=== PATIENT | male | born 2000 | race Two or more races ===

== ENCOUNTER 2025-02-12 21:09 | Emergency (ER) | payer SELFPAY ==
[2025-02-12 21:10] VITALS: BMI 29.9
[2025-02-12 21:38] VITALS: BP 140/94; PULSE 105; RESP 18; TEMP 37.2; O2SAT 99
--- NOTE | 2025-02-12 22:08 | PD.EDURI ---
Upper Respiratory Inf. RME/HPI General Chief Complaint: Flu Like Symptoms Stated Complaint: Sinus Pressure Time Seen by Provider: 02/12/25 21:58 Arrival date/time: 02/12/25 21:09 24M with no significant PMH presents to ED with 2 days of nasal congestion, pressure, and pain. Patient denies cough. Limitations: no limitations Related Data Previous Rx's ?Medication ?Instructions ?Recorded amoxicillin 875 mg-potassium 1 tab PO BID 7 days #14 tabs 02/12/25 clavulanate 125 mg tablet Allergies Allergy/AdvReac Type Severity Reaction Status Date / Time No Known Allergies Allergy Verified 02/12/25 21:12 Review of Systems Review of Systems Systems Reviewed: All systems reviewed, normal except as documented Constitutional Constitutional: Reports system reviewed and no additional complaints, except as documented, Denies fever(s) and Denies headache(s) ENT Ears, Nose, Mouth, and Throat: Reports as per HPI, Denies disequilibrium, Denies headache(s), Reports sinus pain and Reports sinus pressure Cardiovascular Cardiovascular: Reports system reviewed and no additional complaints, except as documented, Denies chest pain and Denies dyspnea Respiratory Respiratory: Reports system reviewed and no additional complaints, except as documented, Denies cough and Denies dyspnea Gastrointestinal Gastrointestinal: Reports system reviewed and no additional complaints, except as documented, Denies abdominal pain, Denies nausea and Denies vomiting Neurologic Neurologic: Reports system reviewed and no additional complaints, except as documented, Denies confusion, Denies disequilibrium and Denies headache(s) Psychiatric Psychiatric: Denies confusion Past Medical History Social History SMOKING STATUS: Never smoker ED Exam General Limitations: Present no limitations General appearance: Present alert and in no apparent distress Head Head exam: Present atraumatic Eye Eye exam: Present normal appearance, PERRL and EOMI ENT ENT exam: Present normal oropharynx and mucous membranes moist Expanded ENT Exam Nose exam: Present sinus tenderness Neck Neck exam: Present normal inspection, full ROM and trachea midline Chest Chest inspection: Present normal inspection and symmetric chest wall rise Respiratory Respiratory exam: Present normal lung sounds bilaterally Cardiovascular Cardiovascular exam: Present regular rate, normal rhythm and normal heart sounds Abdominal Exam Abdominal exam: Present soft and normal bowel sounds Extremities Exam Extremities exam: Present normal inspection and full ROM Back Exam Back exam: Present normal inspection and full ROM Neurological Exam Neurological exam: Present alert, oriented X3 and CN II-XII intact Psychiatric Psychiatric exam: Present normal affect and normal mood Skin Skin exam: Present warm, dry, intact and normal color Course Quality Measures none Orders Category Date Time Status Bedside COVID-19 Antigen Test NOW Care 02/12/25 21:59 Active Bedside Influenza A&B Antigen Test NOW Care 02/12/25 21:59 Completed Amoxicillin/Pot Clav 875 [Augmentin 875] Med 02/12/25 22:32 Once 1 tab PO X1 ONE Naproxen [Naprosyn] Med 02/12/25 22:32 Once 500 mg PO X1 ONE Vital Signs Vital signs: Vital Signs Temperature 99 F 02/12/25 21:38 Pulse Rate 105 H 02/12/25 21:38 Respiratory Rate 18 02/12/25 21:38 Blood Pressure 140/94 H 02/12/25 21:38 Pulse Oximetry (%) 99 02/12/25 21:38 Oxygen Delivery Method Room Air 02/12/25 21:38 O2 at 99% on RA and WNLs Upper Respiratory Infection MDM Narrative MDM Narrative:: 24M with no significant PMH presents to ED with 2 days of nasal congestion, pressure, and pain. Patient denies cough. Physical exam reveals sinus congestion and tenderness. Normal WOB. Patient is afebrile, calm, and alert. Swabs neg. Will treat sinusitis. Patient data External records reviewed:: [facility] previous records Clinical information provided by:: patient Social determinants that could affect healthcare access:: none Patient has the following chronic illnesses:: none How is presenting disease/condition affected by chronic disease/condition?: no chronic disease Evaluation data The following diagnostics were reviewed and interpreted by me:: lab results Lab and/or radiology exams considered but not ordered:: ordered Interpretation Summary: above Medications / Prescriptions Medications or Prescriptions considered but not ordered:: ordered Medication administrations:: Medication Administration History Amoxicillin/Clavulanate Potassium (Amoxicillin/Pot Clav 875 Tablet) 1 tab PO X1 ONE Stop: 02/12/25 22:33 Naproxen (Naproxen 250 Mg Tablet) 500 mg PO X1 ONE Stop: 02/12/25 22:33 above Consultations Consultation(s) initiated? (list below): No Diagnosis Upper Respiratory Differential Diagnosis: upper respiratory infection, croup, otitis media, sinusitis, viral infection, bronchitis, influenza and pharyngitis Most likely diagnosis given after review of the tests above:: sinusitis Admission Indicated Admission indicated?: not indicated Admission Request Was there a request for admission?: No Disposition Plan Disposition Plan: Discharge Discharge Attestation Discharge Attestation: The patient and all family members were given an opportunity to ask questions and understood the discharge instructions. Discharge instructions specifically effects, indications for sooner follow up or return to the emergency department, and the expected course of current diagnosis. Patient condition: Stable Discharge Plan Plan Patient Disposition: HOME (Self Care) Discharge Disposition comment: Stable Prescriptions/Referrals Prescriptions/Med Rec: New amoxicillin-pot clavulanate 875-125 mg tablet 1 tab PO BID 7 Days Qty: 14 0RF Problem List Clinical Impression: Sinusitis Patient/Caregiver Discharge Instructions Education Materials: ED Sinusitis (Antibiotic Treatment) Additional Instructions: Please follow-up with PCP within 24-48 hours and return immediately if symptoms worsen. Ibuprofen/Tylenol can be used simultaneously for greater fever/pain control. Print Language: Faroese Stand Alone Forms: Patient Portal Info Letter MILADIS/JUANIS Supervising Physician AIDAN Supervising Physician: Dr. Hurd
[2025-02-12] MEDS: AMOXICILLIN/POT CLAV 875 TABLET 1 TAB PO (22:51)
[2025-02-12] MEDS: NAPROXEN 250 MG TABLET 500 MG PO (22:51)
== END 2025-02-13 00:33 | disposition home or self-care (01) ==
PROVIDERS: Emergency Provider Emergency Medicine
DX: J32.9 Chronic sinusitis, unspecified (principal)
CPT/HCPCS: 87400; 87811; 99283; A9270